=== PATIENT | male | born 1980 | race Caucasian/White ===

== ENCOUNTER 2024-04-21 17:22 | Inpatient (IN) ==
[2024-04-21 17:42] VITALS: BMI 18.3
--- NOTE | 2024-04-21 18:13 | DR.EXTPAIN ---
HPI Time seen Time Seen by Provider: 04/21/24 18:13 PCP Primary Care Physician: Jef Complaint/Symptoms Chief Complaint Doctor Comments: 43-year-old male sent in for evaluation by his PCPs office. Feeling poorly approximate 3 weeks ago. Was having episodes of left-sided chest pain. Had random intermittent episodes, worse with moving, breathing, yawning at times, pain is off and on. Pain has returned over the past 2 days. Located left side of the chest. He denies any coughing, sputum production, fever, chills, nausea, vomiting, bowel or bladder issues. He denies any recent trauma to the chest. Patient does have chronic back pain, he is on pain management for this. Patient was seen in his PCPs office 6 days ago, had routine blood draw. Was notified today that his white count was elevated at 30,000 also had elevated CRP. He was directed to come to the ER. Chief Complaint:: pt amb to triage with c/o left rib area pain that worsens with deep breath that started approx 3 weeks ago with a cough and became worse last week, he reports his PCP called today to report his WBC on labs done there was extremely elevated and recommended he come to the ER COVID-19 Coronavirus risk:travel/contact w/high risk person: No Has patient experienced Coronavirus symptoms: No Nurses notes reviewed Nurses Notes Review: Yes Source History Provided: Patient and Parent Mode of arrival Mode of Arrival: Ambulatory Timing Onset of Chief Complaint: 04/14/24 PMH PMH Past Medical History: No Past Medical History Comment: treated by PCP for chronic pain Past Surgical History: Yes Surgical History: Cholecystectomy and Ortho Surgery Family History History of Family Medical Conditions: Yes Family Medical History: Diabetes Mellitus Social History Does patient currently use any type of tobacco product: No Have you used tobacco products in the last 12 months: No Type of Tobacco Use: None Alcohol Use: None Do you use any recreational Drugs:: No Lives With: Family Lives Where: Home Travel Risk Coronavirus risk:travel/contact w/high risk person: No Has patient experienced Coronavirus symptoms: No Infectious screening Have you traveled outside the country in the last 6 months?: No Isolation: Standard ROS Review of Systems Constitutional: No Symptoms Reported Eyes: No Symptoms Reported ENTM: No Symptoms Reported Respiratoy: No Symptoms Reported Cardiovascular: Chest Pain Gastrointestinal/Abdominal: No Symptoms Reported Genitourinary: No Symptoms Reported Neurological: No Symptoms Reported Musculoskeletal: No Symptoms Reported Integumentary: No Symptoms Reported Hematologic/Lymphatic: No Symptoms Reported All Other Systems: Reviewed and Negative PE Vital Signs Vitals: Vital Signs Temperature 98.2 F Pulse Rate 98 Respiratory Rate 22 Blood Pressure 117/63 O2 Sat by Pulse Oximetry 93 General General Appearance: Alert and In No Apparent Distress Eyes Eye exam: PERRL and EOMI ENT ENT Exam: Normal Oropharynx, Mucous Membranes Moist and TM's Normal Bilaterally Neck Neck Exam: Normal Inspection and Full ROM; negative Tenderness Chest Chest Inspection: Normal Inspection; negative Tenderness Respiratory Respiratory Exam: Other (+ rales L base); negative Accessory Muscle Use or Respiratory Distress Cardiovascular Cardiovascular Exam: Regular Rate, Normal Rhythm and Normal Heart Sounds Abdominal Exam Abdominal Exam: Normal Inspection, Normal Bowel Sounds and Soft; negative Tenderness Extremities Extremities Exam: Normal Inspection; negative Edema Neurological Neurological Exam: Alert, Oriented X3 and CN II-XII Intact; negative Motor Sensory Deficit Skin Skin Exam: Warm and Dry COURSE Treatment Treatment: 43-year-old male with 3 weeks of intermittent left-sided chest discomfort. Had blood work last week, 6 days ago, showed a white count of 30,000. Patient directed to come in today to be seen, not sure of the delay in the labs until now. Patient's family states there is some problem with the lab per the PCPs office. Workup initiated. Patient given IV fluids. CXR - , Show consolidation of the left lower lobe, consistent with pneumonia. White count down to 27,400. Chemistries are acceptable. Troponin was normal, lactic acid was 1.0. Does have an elevated D-dimer at 3.62, but probably related to the pneumonia. Discussed with the patient's covering physician, Dr. Blood, accepts admission for left lower lobe pneumonia. ROR Labs Reviewed 04/21/24 18:30 04/21/24 18:30 Laboratory: WBC 27.4 X10^3/uL (3.6-10.0) H 04/21/24 18:30 RBC 4.10 X10^6/uL (4.7-6.0) L 04/21/24 18:30 Hgb 11.2 g/dL (13.5-18.0) L 04/21/24 18:30 Hct 34.9 % (42.0-54.0) L 04/21/24 18:30 MCV 84.9 fL (80.0-100.0) 04/21/24 18:30 MCH 27.3 pg (27.0-34.0) 04/21/24 18: MCHC 32.2 g/dL (33.0-35.0) L 04/21/24 18:30 RDW 16.9 % (11.6-16.5) H 04/21/24 18: Plt Count 495 X10^3/uL (150.0-450.0) H 04/21/24 18:30 Plt Count Comment Increased (ADEQUATE) 04/21/24 18: MPV 7.3 fL (7.4-11.0) L 04/21/24 18: Neut % (Auto) 87.4 % (42.0-75.0) H 04/21/24 18:30 Lymph % (Auto) 4.0 % (21.0-51.0) L 04/21/24 18:30 [place] % (Auto) 8.1 % (0.0-13.0) 04/21/24 18:30 Eos % (Auto) 0.1 % (0.9-2.9) L 04/21/24 18:30 Baso % (Auto) 0.4 % (0.2-1.0) 04/21/24 18: Neut # (Auto) 24.0 x10^3/uL (2.2-4.8) H 04/21/24 18:30 Lymph # (Auto) 1.1 X10^3/uL (1.3-2.9) L 04/21/24 18:30 [place] # (Auto) 2.2 x10^3/uL (0.3-0.8) H 04/21/24 18:30 Eos # (Auto) 0.0 x10^3/uL (0.0-0.2) 04/21/24 18:30 Baso # (Auto) 0.1 X10^3/uL (0.0-0.1) 04/21/24 18:30 Absolute Nucleated RBC 0.1 /100WBC 04/21/24 18: Total Counted 100 04/21/24 18: Neutrophils % (Manual) 91 % (39-76) H 04/21/24 18:30 Lymphocytes % (Manual) 4 % (13-43) L 04/21/24 18:30 Monocytes % (Manual) 5 % (4-9) 04/21/24 18:30 Plt Morphology Comment Normal (NORMAL) 04/21/24 18:30 RBC Morphology Normal (NORMAL) 04/21/24 18:30 D-Dimer 3.62 ug/ml (0.0-0.57) H 04/21/24 18:30 Sodium 137 mmol/L (136-145) 04/21/24 18:30 Corrected Sodium 137 mmol/L (136-145) 04/21/24 18:30 Potassium 3.9 mmol/L (3.5-5.1) 04/21/24 18:30 Chloride 97 mmol/L (98-107) L 04/21/24 18:30 Carbon Dioxide 34.3 mmol/L (21-32) H 04/21/24 18:30 BUN 17 mg/dL (7-18) 04/21/24 18:30 Creatinine 0.76 mg/dL (0.70-1.30) 04/21/24 18:30 Est GFR (MDRD) Af Amer > 60 (>60) 04/21/24 18:30 Est GFR (MDRD) Non-Af > 60 (>60) 04/21/24 18:30 Glucose 112 mg/dL (65-99) H 04/21/24 18:30 Lactic Acid 1.0 mmol/L (0.4-2.0) 04/21/24 18:30 Calcium 8.7 mg/dL (8.5-10.1) 04/21/24 18:30 Corrected Calcium 10.6 mg/dL (8.5-10.1) H 04/21/24 18:30 Total Bilirubin 0.20 mg/dL (0.2-1.0) 04/21/24 18:30 AST 13 Units/L (15-37) L 04/21/24 18:30 ALT 13 Units/L (12-78) 04/21/24 18:30 Alkaline Phosphatase 144 Units/L (46-116) H 04/21/24 18:30 Troponin I High Sens < 4.0 ng/L (4.0-60.0) L 04/21/24 18:30 Total Protein 6.7 g/dL (6.4-8.2) 04/21/24 18:30 Albumin 1.6 g/dL (3.4-5.0) L 04/21/24 18:30 Globulin 5.1 g/dL (2.5-4.5) H 04/21/24 18:30 Albumin/Globulin Ratio 0.3 Ratio (1.1-2.1) L 04/21/24 18:30 Lipase 12 Units/L (16-77) L 04/21/24 18:30 Opioid Opioid Risk Tool Age (Eric box if 16-45): Yes History of Preadolescent Sexual Abuse: No Total: 1 Total Score Risk Category: Low Risk Copyright: David LOMAS predicting aberrant behaviors Discharge Plan Discharge Plan Patient Disposition: 01 HOME, SELF-CARE Condition: Stable Prescriptions: No Action methadone 10 mg tablet 10 mg PO DIRECTED Rx Instructions: 5 times QD morphine 60 mg tablet extended release 60 mg PO TID Orders to Discharge Patient Discharge Orders: Transfer (Routine); Ordered 04/21/24 Ordered By: Timbo Serna
[2024-04-21 18:43] LABS: HEMOGLOBIN 11.2 g/dL (13.5-18.0); MEAN PLATELET VOLUME 7.3 fL (7.4-11.0)
[2024-04-21 18:46] LABS: BASOPHILS # (AUTO) 0.1 X10^3/uL (0.0-0.1); BASOPHILS % (AUTO) 0.4 % (0.2-1.0); EOSINOPHILS % (AUTO) 0.1 % (0.9-2.9); HEMATOCRIT 34.9 % (42.0-54.0); LYMPHOCYTES # (AUTO) 1.1 X10^3/uL (1.3-2.9); MEAN CORPUSCULAR HEMOGLOBIN 27.3 pg (27.0-34.0); MEAN CORPUSCULAR HGB CONC 32.2 g/dL (33.0-35.0); MEAN CORPUSCULAR VOLUME 84.9 fL (80.0-100.0); MONOCYTES # (AUTO) 2.2 x10^3/uL (0.3-0.8); MONOCYTES % (AUTO) 8.1 % (0.0-13.0); NEUTROPHILS % (AUTO) 87.4 % (42.0-75.0); PLATELET COUNT 495 X10^3/uL (150.0-450.0); RED CELL DISTRIBUTION WIDTH 16.9 % (11.6-16.5); WHITE BLOOD COUNT 27.4 X10^3/uL (3.6-10.0)
[2024-04-21 18:59] LABS: ALANINE AMINOTRANSFERASE 13 Units/L (12-78); ALBUMIN 1.6 g/dL (3.4-5.0); ALKALINE PHOSPHATASE 144 Units/L (46-116); ASPARTATE AMINO TRANSFERASE 13 Units/L (15-37); BLOOD UREA NITROGEN 17 mg/dL (7-18); CALCIUM 8.7 mg/dL (8.5-10.1); CARBON DIOXIDE 34.3 mmol/L (21-32); CHLORIDE 97 mmol/L (98-107); COR CA(FOR HYPOALB) 10.6 mg/dL (8.5-10.1); COR NA(FOR HYPERGLY) 137 mmol/L (136-145); CREATININE 0.76 mg/dL (0.70-1.30); GLUCOSE 112 mg/dL (65-99); LIPASE 12 Units/L (16-77); POTASSIUM 3.9 mmol/L (3.5-5.1); SODIUM 137 mmol/L (136-145); TOTAL PROTEIN 6.7 g/dL (6.4-8.2); eGFR NON BLACK RACES > 60 (>60)
[2024-04-21] MEDS: NS 1,000 ML IV 1,000 ML IV ONE (19:00)
[2024-04-21 19:13] LABS: PLATELET MORPHOLOGY COMMENT NORMAL (NORMAL)
[2024-04-21] MEDS: VIBRAMYCIN 100 MG in D5W 250 ML IV 250 ML IV SCH (19:58)
[2024-04-21] MEDS: DUONEB 0.5 MG/3 MG (3 mL) NEB SCH (20:54)
[2024-04-21] MEDS: PULMICORT NEB TX 0.5 MG NEB SCH (20:55)
[2024-04-21] MEDS ORDERED: CONSULT PHARMACY - POTASSIUM & MAGNESIUM XX SCH (21:06)
[2024-04-21 21:08] LABS: ABG BASE EXCESS 6.4 mmol/L (-2.0-2.0)
[2024-04-21 21:09] LABS: ABG HCO3 31.3 mmol/L (22-26)
[2024-04-21] MEDS: NS 1,000 ML IV 1,000 ML IV SCH (21:59)
[2024-04-21] MEDS: M.S. CONTIN 30 MG EXTENDED RELEASE PO SCH (23:18)
[2024-04-22] MEDS: ULTRAM PO ONE (03:13)
[2024-04-22] MEDS: VISTARIL PO ONE (03:15)
[2024-04-22] MEDS: ULTRAM ONE (03:26)
[2024-04-22 06:20] LABS: ALANINE AMINOTRANSFERASE 11 Units/L (12-78); ALBUMIN 1.4 g/dL (3.4-5.0); ALKALINE PHOSPHATASE 131 Units/L (46-116); ASPARTATE AMINO TRANSFERASE 16 Units/L (15-37); BLOOD UREA NITROGEN 10 mg/dL (7-18); CALCIUM 8.4 mg/dL (8.5-10.1); CARBON DIOXIDE 29.7 mmol/L (21-32); CHLORIDE 99 mmol/L (98-107); COR CA(FOR HYPOALB) 10.5 mg/dL (8.5-10.1); CREATININE 0.68 mg/dL (0.70-1.30); GLUCOSE 103 mg/dL (65-99); POTASSIUM 3.8 mmol/L (3.5-5.1); SODIUM 136 mmol/L (136-145); eGFR NON BLACK RACES > 60 (>60)
[2024-04-22 06:37] LABS: BASOPHILS % (AUTO) 0.1 % (0.2-1.0); HEMATOCRIT 35.2 % (42.0-54.0); HEMOGLOBIN 11.2 g/dL (13.5-18.0); LYMPHOCYTES % (AUTO) 3.1 % (21.0-51.0); MEAN CORPUSCULAR HGB CONC 31.7 g/dL (33.0-35.0); MEAN PLATELET VOLUME 7.5 fL (7.4-11.0); MONOCYTES # (AUTO) 2.3 x10^3/uL (0.3-0.8); MONOCYTES % (AUTO) 7.1 % (0.0-13.0); NEUTROPHILS # (AUTO) 28.6 x10^3/uL (2.2-4.8); NEUTROPHILS % (AUTO) 89.7 % (42.0-75.0); PLATELET COUNT 499 X10^3/uL (150.0-450.0); RED BLOOD COUNT 4.14 X10^6/uL (4.7-6.0); RED CELL DISTRIBUTION WIDTH 16.9 % (11.6-16.5)
[2024-04-22 06:50] LABS: WHITE BLOOD COUNT 31.9 X10^3/uL (3.6-10.0)
--- NOTE | 2024-04-22 07:13 | RAD ---
EXAM:CHEST, PA/LAT ADULTHISTORY:L chest pain, cough, elev WBC;COMPARISON:May 17TECHNIQUE:Chest x-ray with two viewsFINDINGS:Consolidative infiltrate is noted within the left lower lobe and lingula suggestive of pneumonia. Additionally, there appears to be a left-sided pleural effusion with loculated components not altogether excluded. Left upper lung is better aerated. There is chronic pleural-parenchymal scarring within the right apex and mild pleural thickening within the left apex. Right costophrenic sulcus is marginally blunted for which trace effusion is considered. Normal heart size observed. No radiographic evidence of pneumothorax or free air below the diaphragm. No acute osseous abnormalities of the chest.IMPRESSION:Bronchopneumonia of the left lower lobe/lingula. Moderate left-sided pleural effusion, possibly with loculated components. Trace right-sided pleural effusion also questioned. Further characterization may be considered with CT.Biapical pleural-parenchymal scarring, right more severe than left.THIS IS AN ELECTRONICALLY VERIFIED FINAL REPORT04/22/2024 7:09 AM - Electronically signed by Tre Rehman MD
[2024-04-22] MEDS: ZOFRAN INJ 4 MG VIAL IVP PRN (10:11)
[2024-04-22] MEDS: SOLU-Medrol 125 MG VIAL IVP ONE (10:30)
[2024-04-22] MEDS: METHADONE HCL PO SCH (12:04)
[2024-04-22] MEDS: METHADONE HCL PO ONE (12:08)
--- NOTE | 2024-04-22 13:17 | DR.H&P ---
H&P History & Physical for Day of: H&P Date: 04/22/24 Chief Complaint Chief Complaint: chest pain History of Present Illness History of Present Illness: Patient presented to ER with complaints of left- sided chest pain. In the ER he was found to have leukocytosis, tachycardia, and a left lower lobe pneumonia with large left pleural effusion. Decision was made to admit for IV antibiotics and close monitoring. Patient agreed with this decision and stayed overnight. He is feeling somewhat better on the IV doxycycline but white count did increase from last night. Vitals have stabilized. He is still complaining of moderate to severe left-sided chest pain below the nipple and in the mid axillary line. His cough is better. He has not had steroids. Past medical history: Chronic neck and low back pain, neurofibromatosis type I. Past surgical history: Cholecystectomy, lumbar disc replacement. Family history: Mother is living with coronary artery disease. Father is secondary coronary artery disease. Social history: Patient denies tobacco, alcohol, or illicit drug use. He is single. Emergency contact is his mother, Za. 12 point review of systems otherwise negative. Physical exam: Thin, well-developed, well-nourished male in no acute distress. Hearing is grossly intact. He does have some right-sided facial deformities. Extraocular movements are otherwise grossly intact. Neck with full range of motion. Lungs are clear it safer at the bilateral bases. Lung sounds are a bsent at the bases. Heart with regular rate and rhythm no murmur. GI with bowel sounds present, soft, nontender, and nondistended. Psych blunted but appropriate. Neurologic with alert and oriented x 4. Past Surgical History Surgical History: Cholecystectomy and Ortho Surgery Family History Family Medical History: Diabetes Mellitus Social History Does patient currently use any type of tobacco product: No Have you used tobacco products in the last 12 months: No Type of Tobacco Use: None Does any household member use tobacco: No Alcohol Use: None Drug Use: None Medications Home Medications: Home Medications Medication Instructions Recorded Confirmed Type methadone 10 mg tablet 10 mg PO DIRECTED 04/21/24 04/21/24 History morphine 60 mg tablet,extended 60 mg PO TID 04/21/24 04/21/24 History release dextroamphetamine-amphetamine 30 30 mg PO BID 04/22/24 04/22/24 History mg tablet pantoprazole 40 mg tablet,delayed 40 mg PO BID 04/22/24 04/22/24 History release Allergies Allergies Allergy/AdvReac Type Severity Reaction Status Date / Time nystatin Allergy Verified 04/21/24 17:43 Labs 04/22/24 05:43 04/22/24 05:43 Labs: Laboratory WBC 31.9 X10^3/uL (3.6-10.0) H* 04/22/24 05:43 RBC 4.14 X10^6/uL (4.7-6.0) L 04/22/24 05:43 Hgb 11.2 g/dL (13.5-18.0) L 04/22/24 05:43 Hct 35.2 % (42.0-54.0) L 04/22/24 05:43 MCV 85.0 fL (80.0-100.0) 04/22/24 05:43 MCH 27.0 pg (27.0-34.0) 04/22/24 05:43 MCHC 31.7 g/dL (33.0-35.0) L 04/22/24 05:43 RDW 16.9 % (11.6-16.5) H 04/22/24 05:43 Plt Count 499 X10^3/uL (150.0-450.0) H 04/22/24 05:43 Plt Count Comment Increased (ADEQUATE) 04/21/24 18:30 MPV 7.5 fL (7.4-11.0) 04/22/24 05:43 Neut % (Auto) 89.7 % (42.0-75.0) H 04/22/24 05:43 Lymph % (Auto) 3.1 % (21.0-51.0) L 04/22/24 05:43 [place] % (Auto) 7.1 % (0.0-13.0) 04/22/24 05:43 Eos % (Auto) 0.0 % (0.9-2.9) L 04/22/24 05:43 Baso % (Auto) 0.1 % (0.2-1.0) L 04/22/24 05:43 Neut # (Auto) 28.6 x10^3/uL (2.2-4.8) H 04/22/24 05:43 Lymph # (Auto) 1.0 X10^3/uL (1.3-2.9) L 04/22/24 05:43 [place] # (Auto) 2.3 x10^3/uL (0.3-0.8) H 04/22/24 05:43 Eos # (Auto) 0.0 x10^3/uL (0.0-0.2) 04/22/24 05:43 Baso # (Auto) 0.0 X10^3/uL (0.0-0.1) 04/22/24 05:43 Absolute Nucleated RBC 0.0 /100WBC 04/22/24 05:43 Total Counted 100 04/21/24 18:30 Neutrophils % (Manual) 91 % (39-76) H 04/21/24 18:30 Lymphocytes % (Manual) 4 % (13-43) L 04/21/24 18:30 Monocytes % (Manual) 5 % (4-9) 04/21/24 18:30 Plt Morphology Comment Normal (NORMAL) 04/21/24 18:30 RBC Morphology Normal (NORMAL) 04/21/24 18:30 D-Dimer 3.62 ug/ml (0.0-0.57) H 04/21/24 18:30 Sample Site R bra 04/21/24 21:02 ABG pH 7.450 (7.35-7.45) 04/21/24 21:02 ABG pCO2 45.0 mmHg (35.0-45.0) 04/21/24 21:02 ABG pO2 82.0 mmHg (80.0-100.0) 04/21/24 21:02 ABG HCO3 31.3 mmol/L (22-26) H* 04/21/24 21:02 ABG O2 Saturation 97.0 % (90-100) 04/21/24 21:02 ABG Base Excess 6.4 mmol/L (-2.0-2.0) H 04/21/24 21:02 Felipe Test N/a 04/21/24 21:02 A-a Gradient 11.0 mmHg 04/21/24 21:02 FiO2 21.0 04/21/24 21:02 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 04/21/24 21:02 Sodium 136 mmol/L (136-145) 04/22/24 05:43 Corrected Sodium TNP 04/22/24 05:43 Potassium 3.8 mmol/L (3.5-5.1) 04/22/24 05:43 Chloride 99 mmol/L (98-107) 04/22/24 05:43 Carbon Dioxide 29.7 mmol/L (21-32) 04/22/24 05:43 BUN 10 mg/dL (7-18) 04/22/24 05:43 Creatinine 0.68 mg/dL (0.70-1.30) L 04/22/24 05:43 Est GFR (MDRD) Af Amer > 60 (>60) 04/22/24 05:43 Est GFR (MDRD) Non-Af > 60 (>60) 04/22/24 05:43 Glucose 103 mg/dL (65-99) H 04/22/24 05:43 Lactic Acid 1.0 mmol/L (0.4-2.0) 04/21/24 18:30 Calcium 8.4 mg/dL (8.5-10.1) L 04/22/24 05:43 Corrected Calcium 10.5 mg/dL (8.5-10.1) H 04/22/24 05:43 Total Bilirubin 0.20 mg/dL (0.2-1.0) 04/22/24 05:43 AST 16 Units/L (15-37) 04/22/24 05:43 ALT 11 Units/L (12-78) L 04/22/24 05:43 Alkaline Phosphatase 131 Units/L (46-116) H 04/22/24 05:43 Troponin I High Sens < 4.0 ng/L (4.0-60.0) L 04/21/24 18:30 Total Protein 6.0 g/dL (6.4-8.2) L 04/22/24 05:43 Albumin 1.4 g/dL (3.4-5.0) L 04/22/24 05:43 Globulin 4.6 g/dL (2.5-4.5) H 04/22/24 05:43 Albumin/Globulin Ratio 0.3 Ratio (1.1-2.1) L 04/22/24 05:43 Lipase 12 Units/L (16-77) L 04/21/24 18:30 Physical Exam Vital Signs: Vital Signs Pulse Rate 75 Pulse Rate 85 Pulse Rate 75 Pulse Rate 84 Pulse Rate 88 Pulse Rate 80 Pulse Rate 93 Pulse Rate 69 Pulse Rate 77 Pulse Rate 84 Pulse Rate 81 Pulse Rate 82 Pulse Rate 85 Pulse Rate 89 Pulse Rate 90 Pulse Rate 83 Respiratory Rate 20 Respiratory Rate 20 Respiratory Rate 20 Respiratory Rate 20 Blood Pressure 103/57 Blood Pressure 115/56 Blood Pressure 134/66 Blood Pressure 125/58 Blood Pressure 120/56 Blood Pressure 115/51 Blood Pressure 116/58 O2 Sat by Pulse Oximetry 100 O2 Sat by Pulse Oximetry 100 O2 Sat by Pulse Oximetry 100 O2 Sat by Pulse Oximetry 100 O2 Sat by Pulse Oximetry 100 O2 Sat by Pulse Oximetry 100 O2 Sat by Pulse Oximetry 100 O2 Sat by Pulse Oximetry 100 O2 Sat by Pulse Oximetry 99 O2 Sat by Pulse Oximetry 98 O2 Sat by Pulse Oximetry 99 O2 Sat by Pulse Oximetry 98 O2 Sat by Pulse Oximetry 92 O2 Sat by Pulse Oximetry 98 O2 Sat by Pulse Oximetry 99 O2 Sat by Pulse Oximetry 99 Assessment/Plan (1) Sepsis: Qualifiers: Sepsis type: sepsis due to unspecified organism Sepsis acute organ dysfunction status: without acute organ dysfunction Qualified Code(s): A41.9 - Sepsis, unspecified organism Narrative Support Text: Continue IV doxycycline. Continue nebulizers. Continue close monitoring. Continue IV fluids. Likely discharge home tomorrow on p.o. Doxy. Status: Acute (2) LLL pneumonia: Qualifiers: Pneumonia type: due to unspecified organism Qualified Code(s): J18.9 - Pneumonia, unspecified organism Narrative Support Text: See above Status: Acute (3) Neurofibromatosis: Narrative Support Text: Per outpatient provider. Status: Acute (4) Lumbar disc disease: Narrative Support Text: Continue home meds. Status: Acute (5) Pleural effusion, left: Narrative Support Text: Solu-Medrol 125 now. Prednisone 20 daily. Monitor with daily chest x-ray. Likely complication of his left lower lobe pneumonia. Status: Acute (6) Pleurisy with effusion: Narrative Support Text: See above. Case discussed with patient, his mother, and nurse in room. Status: Acute
[2024-04-22] MEDS ORDERED: CONSULT PHARMACY - POTASSIUM & MAGNESIUM XX SCH (16:00)
[2024-04-22] MEDS: TYLENOL 325 MG TAB PO PRN (16:30)
[2024-04-22] MEDS: MAG-OX TAB PO SCH (17:58)
[2024-04-22] MEDS: K-DUR TAB 20 MEQ PO ONE (17:58)
[2024-04-23 06:02] LABS: HEMOGLOBIN 10.8 g/dL (13.5-18.0); LYMPHOCYTES # (AUTO) 1.2 X10^3/uL (1.3-2.9); LYMPHOCYTES % (AUTO) 3.6 % (21.0-51.0)
[2024-04-23 06:10] LABS: BASOPHILS % (AUTO) 0.1 % (0.2-1.0); HEMATOCRIT 34.1 % (42.0-54.0); MEAN CORPUSCULAR HGB CONC 31.7 g/dL (33.0-35.0); MEAN CORPUSCULAR VOLUME 85.1 fL (80.0-100.0); MEAN PLATELET VOLUME 7.3 fL (7.4-11.0); MONOCYTES # (AUTO) 1.4 x10^3/uL (0.3-0.8); MONOCYTES % (AUTO) 4.4 % (0.0-13.0); NEUTROPHILS # (AUTO) 29.3 x10^3/uL (2.2-4.8); NEUTROPHILS % (AUTO) 91.9 % (42.0-75.0); PLATELET COUNT 532 X10^3/uL (150.0-450.0); RED BLOOD COUNT 4.01 X10^6/uL (4.7-6.0); RED CELL DISTRIBUTION WIDTH 16.7 % (11.6-16.5)
[2024-04-23 06:20] LABS: ALANINE AMINOTRANSFERASE 12 Units/L (12-78); ALBUMIN 1.4 g/dL (3.4-5.0); ALKALINE PHOSPHATASE 122 Units/L (46-116); ASPARTATE AMINO TRANSFERASE 11 Units/L (15-37); BLOOD UREA NITROGEN 13 mg/dL (7-18); CALCIUM 8.5 mg/dL (8.5-10.1); CARBON DIOXIDE 33.7 mmol/L (21-32); CHLORIDE 101 mmol/L (98-107); COR CA(FOR HYPOALB) 10.6 mg/dL (8.5-10.1); COR NA(FOR HYPERGLY) 138 mmol/L (136-145); CREATININE 0.71 mg/dL (0.70-1.30); GLUCOSE 114 mg/dL (65-99); SODIUM 138 mmol/L (136-145); TOTAL PROTEIN 5.9 g/dL (6.4-8.2); eGFR NON BLACK RACES > 60 (>60)
[2024-04-23 06:23] LABS: WHITE BLOOD COUNT 31.9 X10^3/uL (3.6-10.0)
--- NOTE | 2024-04-23 06:25 | RAD ---
EXAM: CHEST, 1 VIEW HISTORY: LLL PNEUMONIA; MO, ORTHO COMPARISON: Prior study or studies were utilized for comparison during interpretation with the most relevant bruno ed 04/21/2024 TECHNIQUE: CHEST, 1 VIEW FINDINGS: Chest: Lines and tubes: None Mediastinum: Cardiac and mediastinal shadow is within normal limits for size and contour. Pulmonary vessels: No pulmonary vascular congestion. Lung bolaños: There is a left base consolidation Pleura: No effusion. No pneumothorax. Bones and soft tissues: No acute osseous or soft tissue abnormality. IMPRESSION: 1. Left base pneumonia without significant change from April 21, 2024 THIS IS AN ELECTRONICALLY VERIFIED FINAL REPORT 04/23/2024 6:22 AM - Electronically signed by Manuelito Esparza MD
[2024-04-23 06:44] LABS: BAND NEUTROPHILS % 12 % (0-10); PLATELET MORPHOLOGY COMMENT NORMAL (NORMAL)
--- NOTE | 2024-04-23 09:02 | CT ---
EXAM:CHEST W/O CONHISTORY:LLL PNEUMONIA;COMPARISON:Chest radiograph 04/23/2024TECHNIQUE:Multiple CT axial images of the chest were obtained without IV contrast. Coronal and sagittal images were reconstructed. Dose reduction techniques included Automated Exposure Control (AEC) and adjustment of mA and kV.FINDINGS:A small to moderate loculated left pleural effusion is noted. This is the abnormality causing most of the findings on the chest radiograph.There is airspace opacity in the left lung but this is mostly peripheral and associated with a loculated effusion. These may represent areas of atelectasis. There is no obvious underlying mass in the left lung but a small lesion could be missed since no contrast was used. Recommend follow-up chest CT in 3 months using contrastVery small loculated right effusion is noted superiorly along the major fissure.No obvious lung mass or suspicious nodule.The heart is normal in size. The pulmonary artery and aorta have a normal caliber. No obvious mediastinal lymphadenopathy, although my sensitivity for detecting borderline nodes is limited without contrast.The thyroid has a normal size and configuration. No axillary mass or significant axillary lymphadenopathy is identified.Limited images of the upper abdomen show no significant abnormality. Surgical clips are present in the gallbladder fossa from a cholecystectomy.IMPRESSION:1. Loculated pleural effusions, left side greater than right2. Probable atelectasis in the left lung3. Recommend follow-up chest CT with contrast in 3 monthsTHIS IS AN ELECTRONICALLY VERIFIED FINAL REPORT04/23/2024 8:58 AM - Electronically signed by Chiki Amos MD
[2024-04-23] MEDS: PREDNISONE TAB 20 MG PO SCH (09:15)
[2024-04-23 10:59] VITALS: RESP 20
--- NOTE | 2024-04-23 13:49 | PCM.DCPLAN ---
DISCHARGE SUMMARY Admission Date Date of Admission: 04/22/24 Discharge Date Discharge Date: 04/23/24 Admission Diagnoses (1) Sepsis: Status: Acute (2) LLL pneumonia: Status: Acute (3) Neurofibromatosis: Status: Acute (4) Lumbar disc disease: Status: Acute (5) Pleural effusion, left: Status: Acute (6) Pleurisy with effusion: Status: Acute Discharge Medications Discharge Medications: Home Medication List methadone 10 mg tablet 10 mg PO DIRECTED 04/21/24 [History] morphine 60 mg tablet,extended release 60 mg PO TID 04/21/24 [History] dextroamphetamine-amphetamine 30 mg tablet 30 mg PO BID 04/22/24 [History] pantoprazole 40 mg tablet,delayed release 40 mg PO BID 04/22/24 [History] Prescriptions: Hospital Course Vital Signs: Vital Signs Temperature 98.2 F Pulse Rate 72 Respiratory Rate 18 Respiratory Rate 18 Respiratory Rate 16 Blood Pressure 92/51 O2 Sat by Pulse Oximetry 96 Latest Lab Results: Laboratory Last Values WBC 31.9 X10^3/uL (3.6-10.0) H* 04/23/24 05:45 RBC 4.01 X10^6/uL (4.7-6.0) L 04/23/24 05:45 Hgb 10.8 g/dL (13.5-18.0) L 04/23/24 05:45 Hct 34.1 % (42.0-54.0) L 04/23/24 05:45 MCV 85.1 fL (80.0-100.0) 04/23/24 05:45 MCH 27.0 pg (27.0-34.0) 04/23/24 05:45 MCHC 31.7 g/dL (33.0-35.0) L 04/23/24 05:45 RDW 16.7 % (11.6-16.5) H 04/23/24 05:45 Plt Count 532 X10^3/uL (150.0-450.0) H 04/23/24 05:45 Plt Count Comment Increased (ADEQUATE) 04/23/24 05:45 MPV 7.3 fL (7.4-11.0) L 04/23/24 05:45 Neut % (Auto) 91.9 % (42.0-75.0) H 04/23/24 05:45 Lymph % (Auto) 3.6 % (21.0-51.0) L 04/23/24 05:45 [place] % (Auto) 4.4 % (0.0-13.0) 04/23/24 05:45 Eos % (Auto) 0.0 % (0.9-2.9) L 04/23/24 05:45 Baso % (Auto) 0.1 % (0.2-1.0) L 04/23/24 05:45 Neut # (Auto) 29.3 x10^3/uL (2.2-4.8) H 04/23/24 05:45 Lymph # (Auto) 1.2 X10^3/uL (1.3-2.9) L 04/23/24 05:45 [place] # (Auto) 1.4 x10^3/uL (0.3-0.8) H 04/23/24 05:45 Eos # (Auto) 0.0 x10^3/uL (0.0-0.2) 04/23/24 05:45 Baso # (Auto) 0.0 X10^3/uL (0.0-0.1) 04/23/24 05:45 Absolute Nucleated RBC 0.0 /100WBC 04/23/24 05:45 Total Counted 100 04/23/24 05:45 Neutrophils % (Manual) 82 % (39-76) H 04/23/24 05:45 Band Neutrophils % 12 % (0-10) H 04/23/24 05:45 Lymphocytes % (Manual) 4 % (13-43) L 04/23/24 05:45 Monocytes % (Manual) 2 % (4-9) L 04/23/24 05:45 Plt Morphology Comment Normal (NORMAL) 04/23/24 05:45 RBC Morphology Normal (NORMAL) 04/23/24 05:45 D-Dimer 3.62 ug/ml (0.0-0.57) H 04/21/24 18:30 Sample Site R bra 04/21/24 21:02 ABG pH 7.450 (7.35-7.45) 04/21/24 21:02 ABG pCO2 45.0 mmHg (35.0-45.0) 04/21/24 21:02 ABG pO2 82.0 mmHg (80.0-100.0) 04/21/24 21:02 ABG HCO3 31.3 mmol/L (22-26) H* 04/21/24 21:02 ABG O2 Saturation 97.0 % (90-100) 04/21/24 21:02 ABG Base Excess 6.4 mmol/L (-2.0-2.0) H 04/21/24 21:02 Felipe Test N/a 04/21/24 21:02 A-a Gradient 11.0 mmHg 04/21/24 21:02 FiO2 21.0 04/21/24 21:02 Blood Gas Comments Asif well alum plant operator 04/21/24 21:02 Sodium 138 mmol/L (136-145) 04/23/24 05:45 Corrected Sodium 138 mmol/L (136-145) 04/23/24 05:45 Potassium 4.0 mmol/L (3.5-5.1) 04/23/24 05:45 Chloride 101 mmol/L (98-107) 04/23/24 05:45 Carbon Dioxide 33.7 mmol/L (21-32) H 04/23/24 05:45 BUN 13 mg/dL (7-18) 04/23/24 05:45 Creatinine 0.71 mg/dL (0.70-1.30) 04/23/24 05:45 Est GFR (MDRD) Af Amer > 60 (>60) 04/23/24 05:45 Est GFR (MDRD) Non-Af > 60 (>60) 04/23/24 05:45 Glucose 114 mg/dL (65-99) H 04/23/24 05:45 Lactic Acid 1.0 mmol/L (0.4-2.0) 04/21/24 18:30 Calcium 8.5 mg/dL (8.5-10.1) 04/23/24 05:45 Corrected Calcium 10.6 mg/dL (8.5-10.1) H 04/23/24 05:45 Magnesium 2.0 mg/dL (2.0-2.9) 04/23/24 05:45 Total Bilirubin 0.10 mg/dL (0.2-1.0) L 04/23/24 05:45 AST 11 Units/L (15-37) L 04/23/24 05:45 ALT 12 Units/L (12-78) 04/23/24 05:45 Alkaline Phosphatase 122 Units/L (46-116) H 04/23/24 05:45 Troponin I High Sens < 4.0 ng/L (4.0-60.0) L 04/21/24 18:30 Total Protein 5.9 g/dL (6.4-8.2) L 04/23/24 05:45 Albumin 1.4 g/dL (3.4-5.0) L 04/23/24 05:45 Globulin 4.5 g/dL (2.5-4.5) 04/23/24 05:45 Albumin/Globulin Ratio 0.3 Ratio (1.1-2.1) L 04/23/24 05:45 Lipase 12 Units/L (16-77) L 04/21/24 18:30 Hospital Course: Patient admitted after presentation to the ER with severe left-sided chest pain and cough. He was found to have a left lower lobe pneumonia, large left sided pleural effusion, and meeting sepsis criteria. He was started on IV doxycycline in the ER which was continued during admission. He was also given a dose of Solu-Medrol yesterday and oral prednisone yesterday and today. He did have leukocytosis that was thought to be stable because of the steroids given yesterday. His overall status greatly improved on the doxycycline and steroids. He had complete resolution of his pleuritic chest pain. At time of discharge she was ambulating the hallways without assistance, eating all meals, and able to use his incentive spirometry without any issues. He was discharged in good condition to home with oral doxycycline and instructions to follow-up closely with PCP. Of note a CT was repeated because the leukocytosis was still above 30,000 and it confirmed the loculated pleural effusions. No mass was seen but it was recommended that he have a 3-month CT with contrast of the chest for follow-up.
[2024-04-23 15:18] VITALS: BP 112/74; PULSE 76; TEMP 98.6; O2SAT 99
== END 2024-04-23 12:20 | disposition home or self-care (01) | DRG 194 ==
LOC: U 17:22 → ER 17:22 → OBSVTOIN 19:52 → U 21:43 → MED/SURG 04-22 13:14
PROVIDERS: ADMIT Internal Medicine; ATTEND Internal Medicine
DX: J90 Pleural effusion, not elsewhere classified; M54.59 Other low back pain; R00.0 Tachycardia, unspecified; J18.8 Other pneumonia, unspecified organism; R07.89 Other chest pain